=== PATIENT | male | born 1960 | race Caucasian/White ===

== ENCOUNTER 2018-07-05 09:01 | Day surgery (SDC) | payer OTHER ==
[2018-07-05] MEDS ORDERED: PROPOFOL 60 ML (10:50)
[2018-07-05] MEDS ORDERED: LIDOCAINE 2% (SDV) 5 ML INJ (10:50)
== END 2018-07-05 13:23 | disposition home or self-care (01) ==
LOC: GIL 09:01
DX: Z12.11 Encounter for screening for malignant neoplasm of colon (principal); D12.0 Benign neoplasm of cecum; K64.8 Other hemorrhoids; K57.30 Diverticulosis of large intestine without perforation or abscess without bleeding
CPT/HCPCS: 45385; 88305